=== PATIENT | female | born 1940 | race Caucasian/White ===

== ENCOUNTER 2016-12-22 09:02 | Inpatient (IN) | payer OTHER ==
[2016-12-22 09:02] VITALS: BMI 26.5
--- NOTE | 2016-12-22 09:35 | ED PDOC ---
HPI: Chest Pain Time Seen by Provider: 12/22/16 09:22 Chief Complaint (Nursing): Chest Pain Additional Complaint(s): Patient is a 76 y/o F with HTN and DM, presenting with chest pain. She reports that she woke up this morning with L sided pleuritic chest pain. She reports a hx of GERD and is also complaining of some burning in her epigastric area. Reports non-productive cough and some shortness of breath. Denies prior cardiac workup. PMD: Dr. Clemente Past Medical History Vital Signs: Last Vital Signs Temp 97 F L 12/22/16 09:22 Pulse 71 12/22/16 09:22 Resp 18 12/22/16 09:22 BP 182/84 H 12/22/16 09:22 Pulse Ox 99 12/22/16 12:50 - Medical History PMH: Dementia, Diabetes, Gastritis, HTN - Surgical History Surgical History: Appendectomy, Carotid Endarterectomy - Family History Family History: States: Unknown Family Hx - Home Medications Home Medications: Ambulatory Orders Medication Instructions Recorded Donepezil [Aricept] 5 mg PO DAILY 01/19/16 Losartan [Cozaar] 50 mg PO DAILY 01/19/16 Pantoprazole Sodium [Protonix] 40 mg PO DAILY 01/19/16 SITagliptin [Januvia] 100 mg PO DAILY 01/19/16 Cyclobenzaprine [Cyclobenzaprine 10 mg PO TID #9 tab 03/11/16 HCl] Methylprednisolone [Medrol Dose 4 mg PO DAILY #21 tab 03/11/16 Pack (21 tabs)] - Allergies Allergies/Adverse Reactions: Allergies Allergy/AdvReac Type Severity Reaction Status Date / Time No Known Allergies Allergy Verified 12/22/16 09:22 MAGY Risk Score for UA/NSTEMI - MAGY Risk Score Age > 64: YES 3 or more CAD Risk Factors: YES Aspirin use in past 7 days: YES MAGY Score: 3 Risk %: 13% Wells Criteria for PE - Wells Criteria for Pulmonary Embolism Clinical Signs and Symptoms of DVT: No P.E is #1 Diagnosis, or Equally Likely: No Heart Rate >100: No Immobilization at least 3 days;Surgery previous 4 weeks: No Previous, objectively diagnosed PE or DVT: No Hemoptysis: No Malignancy w/treatment within 6 months, or palliative: No Total Score: 0 Review of Systems Constitutional: Negative for: Fever, Chills Eyes: Negative for: Pain ENT: Negative for: Ear Pain Cardiovascular: Positive for: Chest Pain. Negative for: Palpitations, Orthopnea , Paroxysmal Noc. Dyspnea, Edema, Light Headedness Respiratory: Positive for: Cough, Shortness of Breath, Pleuritic Pain. Negative for: Hemoptysis, SOB with Exertion, Sputum, Wheezing Gastrointestinal: Negative for: Nausea, Vomiting, Abdominal Pain, Diarrhea, Constipation Genitourinary Female: Negative for: Dysuria Musculoskeletal: Negative for: Neck Pain Skin: Negative for: Rash Psych: Negative for: Anxiety Physical Exam - Reviewed Nursing Documentation Reviewed: Yes Vital Signs Reviewed: Yes - Physical Exam Appears: Positive for: Well, Non-toxic Head Exam: Positive for: ATRAUMATIC, NORMAL INSPECTION, NORMOCEPHALIC Skin: Positive for: Normal Color, Warm, DRY Neck: Positive for: Normal, Painless ROM Cardiovascular/Chest: Positive for: Regular Rate, Rhythm Respiratory: Positive for: Normal Breath Sounds. Negative for: Rales, Rhonchi, Stridor Gastrointestinal/Abdominal: Positive for: Soft. Negative for: Tenderness, Mass , Distended Back: Positive for: Normal Inspection Extremity: Positive for: Normal ROM. Negative for: Pedal Edema - Laboratory Results Result Diagrams: 12/22/16 09:45 12/22/16 09:45 - ECG O2 Sat by Pulse Oximetry: 99 Medical Decision Making Medical Decision Making: EKG shows NSR at 76bpm with normal intervals and no ST changes. Cxray negative. CTA negative for PE. Trop x 1 negative. Spoke to Medicine process control tech, Dr. Jackie Madrigal and will transfer to tele observation for chest pain due to risk factors and no prior cardiac workup. Disposition - Clinical Impression Clinical Impression: Chest pain - Disposition Disposition Time: 09:45 Condition: FAIR
[2016-12-22] MEDS ORDERED: Aspirin 325 mg EC Tablets PO ONE (09:52)
[2016-12-22 09:56] LABS: BASO # 0.1 K/uL (0.0-0.2); BASO % 1.4 % (0.0-2.0); EOS # 0.1 K/uL (0.0-0.7); EOS % 1.5 % (0.0-4.0); HEMATOCRIT 41.9 % (34.0-47.0); LYMPH # 1.8 K/uL (1.0-4.3); LYMPH % 37.4 % (20.0-40.0); MEAN CELL VOLUME 89.6 fl (81.0-99.0); MEAN CORPUSCULAR HGB CONC 33.4 g/dL (33.0-37.0); MONO # 0.5 K/uL (0.0-0.8); MONO % 10.1 % (0.0-10.0); NEUT # 2.4 K/uL (1.8-7.0); NEUT % 49.6 % (50.0-75.0); NRBC % 0.2 % (0.0-0.0); RED CELL DISTRIBUTION WIDTH 13.7 % (11.5-14.5); WHITE BLOOD COUNT 4.9 K/uL (4.8-10.8)
[2016-12-22 10:08] LABS: ALB/GLOB RATIO 1.1 (1.0-2.1); ALKALINE PHOSPHATASE 143 U/L (38-126); ALT/SGPT 114 U/L (9-52); AST/SGOT 106 U/L (14-36); BILIRUBIN,TOTAL 1.1 mg/dl (0.2-1.3); BLOOD UREA NITROGEN 15 mg/dl (7-17); CALCIUM 9.6 mg/dL (8.4-10.2); CARBON DIOXIDE 26 mmol/L (22-30); CHLORIDE 104 mmol/L (98-107); GFR AFRICAN-AMERICAN > 60; GLUCOSE,RANDOM 207 mg/dL (65-105); POTASSIUM 4.1 MMOL/L (3.6-5.0); SODIUM 140 mmol/l (132-148); TOTAL PROTEIN 7.3 G/DL (6.3-8.2)
[2016-12-22 10:13] LABS: PARTIAL THROMBOPLASTIN TIME 31.6 Seconds (25.6-37.1)
--- NOTE | 2016-12-22 11:24 | RAD ---
HISTORY: chest pain COMPARISON: Comparison made with chest radiograph 03/31/2010 FINDINGS: LUNGS: Mild bibasilar atelectasis left greater than right slight elevation right hemidiaphragm. PLEURA: No significant pleural effusion identified, no pneumothorax apparent. CARDIOVASCULAR: Normal. OSSEOUS STRUCTURES: There is a tiny metallic fixation ankle overlying the right humeral head VISUALIZED UPPER ABDOMEN: Normal. OTHER FINDINGS: None. IMPRESSION: Mild bibasilar atelectasis. Slight elevation right hemidiaphragm.
[2016-12-22] MEDS ORDERED: Iodixanol 320 MG/ML 100 ML BOTTLE IV ONE (11:36)
[2016-12-22] MEDS ORDERED: Sodium Chloride 0.9% 50 ML IV ONE (11:37)
--- NOTE | 2016-12-22 12:26 | CT ---
CTA chest PE protocol Indication: Pleuritic chest pain Technique: Contiguous axial images were obtained through the chest with intravenous contrast enhancement. Sagittal and coronal reconstructions were generated and reviewed. This CT exam was performed using 1 or more of the falling dose reduction techniques: Automated exposure control, adjustment of the MAA and/or kV according to patient size, and/or use of iterative reconstruction technique. IV Contrast: 95 mL Visipaque 320 Radiation dose (DLP): 382.79 MGy-cm. Comparison: Chest x-ray performed 12/22/16 Findings: Visualized portions of the inferior thyroid gland appear unremarkable. The mediastinal and hilar vascular structures appear within normal limits. The heart appears within normal limits of size. There is suboptimal opacification of the pulmonary arteries limiting evaluation for pulmonary embolus. Given this limitation, there are no visible intraluminal filling defects within the central pulmonary arteries to suggest central pulmonary embolism. No focal consolidation. No pleural effusion. No pneumothorax. Punctate right sub cm prevascular lymph nodes, nonspecific. Upper lobe calcified granuloma. No suspicious pulmonary nodules measuring greater than 5 mm. Limited visualized portions of the upper abdomen appear grossly unremarkable. Osseous demineralization. Degenerative changes. Impression: There is suboptimal opacification of the pulmonary arteries limiting evaluation for pulmonary embolus. Given this limitation, there are no visible intraluminal filling defects within the central pulmonary arteries to suggest central pulmonary embolism.
[2016-12-22] MEDS ORDERED: Ergocalciferol 50,000 Intl Units Cap PO SCH (15:45)
[2016-12-22] MEDS: Enoxaparin 40 mg Syringe SC SCH (16:45)
[2016-12-22] MEDS: Multivitamin With Minerals Tab PO SCH (16:46)
[2016-12-22] MEDS: Calcium-Vit D 500 mg-200 Units Tab UD PO SCH (16:46)
[2016-12-22] MEDS: Pantoprazole 40 mg EC Tab PO SCH (17:01)
--- NOTE | 2016-12-22 18:20 | CP.PCM.CON ---
History of Present Illness - History of Present Illness History of Present Illness: Consultation for evaluation of chest pain HPI: 76-year-old female with past medical history significant for hypertension diabetes mellitus presented with an episode of chest pain according to the patient's family at the bedside who did the translation for her she had an episode of left-sided patient described as pleuritic in nature worse with deep inspiration. She has known history of gastroesophageal reflux disease and complaining of some epigastric burning. Has a nonproductive ongoing for a month prior to presentation associated mild shortness of breath. Patient has been followed by Dr. Dixon in outpatient. I spoke to Dr. Zack Cristobal [facility] [place] to obtain the records of her prior workup. She never had any cardiac workup in the past and. Review of Systems - Review of Systems All systems: reviewed and no additional remarkable complaints except - Constitutional Constitutional: As Per HPI, Fatigue, Malaise - EENT Eyes: As Per HPI Ears: As Per HPI Nose/Mouth/Throat: As Per HPI - Breasts Breasts: As Per HPI - Cardiovascular Cardiovascular: As Per HPI, Chest Pain - Respiratory Respiratory: As Per HPI, Cough - Gastrointestinal Gastrointestinal: As Per HPI - Genitourinary Genitourinary: As Per HPI - Reproductive: Female Reproductive:Female: As Per HPI - Musculoskeletal Musculoskeletal: As Per HPI - Integumentary Integumentary: As Per HPI - Neurological Neurological: As Per HPI - Psychiatric Psychiatric: As Per HPI - Endocrine Endocrine: As Per HPI - Hematologic/Lymphatic Hematologic: As Per HPI Past Patient History - Past Medical History & Family History Pertinent Family History: +ve for HTN - Past Social History Smoking Status: Never Smoked - CARDIAC Hx Cardiac Disorders: (HTN, high cholesterol) - PULMONARY Hx Respiratory Disorders: No - NEUROLOGICAL Hx Neurological Disorder: Yes (Dementia) - ENDOCRINE/METABOLIC Hx Endocrine Disorders: Yes (DM) - MUSCULOSKELETAL/RHEUMATOLOGICAL Hx Falls: No - GASTROINTESTINAL Hx Gastritis: Yes - GENITOURINARY/GYNECOLOGICAL Hx Genitourinary Disorders: No - PSYCHIATRIC Hx Psychophysiologic Disorder: No Hx Substance Use: No - SURGICAL HISTORY Hx Appendectomy: Yes Hx Carotid Endarterectomy: Yes - ANESTHESIA Hx Anesthesia: Yes Hx Anesthesia Reactions: No Meds Allergies/Adverse Reactions: Allergies Allergy/AdvReac Type Severity Reaction Status Date / Time No Known Allergies Allergy Verified 12/22/16 09:22 - Medications Medications: Current Medications Calcium/Vitamin D (Oyster Shell Calcium/Vitamin D 500 Mg-200 Iu) 1 tab PO BID [facility] Last Admin: 12/22/16 16:46 Dose: 1 tab Donepezil HCl (Aricept) 5 mg PO DAILY [facility] Last Admin: 12/22/16 16:55 Dose: 5 mg Enoxaparin Sodium (Lovenox) 40 mg SC DAILY [facility] PRN Reason: Protocol Last Admin: 12/22/16 16:45 Dose: 40 mg Ergocalciferol (Drisdol 50,000 Intl Units Cap) 1 cap PO FR [facility] Last Admin: 12/22/16 16:47 Dose: 1 cap Losartan Potassium (Cozaar) 50 mg PO DAILY [facility] Last Admin: 12/22/16 16:47 Dose: 50 mg Meclizine HCl (Antivert) 25 mg PO TID PRN PRN Reason: Dizziness Multivitamins/Minerals (Therapeutic-M Tab) 1 tab PO DAILY [facility] Last Admin: 12/22/16 16:46 Dose: 1 tab Oisgx-8-[id number] Ethyl Esters (Lovaza) 1 gm PO DAILY [facility] Pantoprazole Sodium (Protonix Ec Tab) 40 mg PO DAILY [facility] Last Admin: 12/22/16 17:01 Dose: 40 mg Sitagliptin Phosphate (Januvia) 100 mg PO DAILY [facility] Last Admin: 12/22/16 16:47 Dose: 100 mg Vitamin E (Vitamin E 400 Units Cap) 400 intlu PO DAILY [facility] Last Admin: 12/22/16 16:47 Dose: 400 intlu Physical Exam - Constitutional Appears: Well - Head Exam Head Exam: ATRAUMATIC, NORMAL INSPECTION, NORMOCEPHALIC - Eye Exam Eye Exam: EOMI, Normal appearance, PERRL Pupil Exam: NORMAL ACCOMODATION, PERRL - ENT Exam ENT Exam: Mucous Membranes Moist, Normal Exam - Neck Exam Neck exam: Positive for: Normal Inspection - Respiratory Exam Respiratory Exam: Clear to Auscultation Bilateral, NORMAL BREATHING PATTERN - Cardiovascular Exam Cardiovascular Exam: REGULAR RHYTHM, RRR, +S1, +S2, Systolic Murmur - GI/Abdominal Exam GI & Abdominal Exam: Normal Bowel Sounds, Soft. absent: Tenderness - Exam Bimanual exam: NORMAL BIMANUAL EXAM - Extremities Exam Extremities exam: Positive for: normal inspection - Back Exam Back exam: NORMAL INSPECTION - Neurological Exam Neurological exam: Alert, CN II-XII Intact, Oriented x3, Reflexes Normal - Psychiatric Exam Psychiatric exam: Normal Affect, Normal Mood - Skin Skin Exam: Dry, Intact, Normal Color, Warm Results - Vital Signs Recent Vital Signs: Last Vital Signs Temp 98.1 F 12/22/16 17:00 Pulse 65 12/22/16 17:00 Resp 20 12/22/16 17:00 BP 172/84 H 12/22/16 17:00 Pulse Ox 97 12/22/16 17:00 - Labs Result Diagrams: 12/22/16 09:45 12/22/16 09:45 Labs: Laboratory Results - last 24 hr 12/22/16 12/22/16 12/22/16 14:42 16:26 16:31 POC Glucose (mg/dL) 176 H 227 H Troponin I < 0.0120 Assessment & Plan (1) Chest pain Assessment and Plan: both typical and atypical features pretest probability for CAD is high will SHAY check echo in am keep her on asa, bb, statins and nitrates plan for stress test depending on above results Status: Acute (2) HTN (hypertension) Assessment and Plan: cont home BP meds for now Status: Acute (3) Dyslipidemia Assessment and Plan: check FLP in am Status: Acute
[2016-12-22] MEDS ORDERED: Glucagon Recombinant 1 mg Inj IM PRN (19:34)
[2016-12-22] MEDS ORDERED: Dextrose 50% SYRINGE Inj (50 ml) IV PRN (19:34)
[2016-12-22] MEDS: Insulin Regular 100 units/ml SC SCH (22:37)
[2016-12-23 08:17] LABS: ALKALINE PHOSPHATASE 102 U/L (38-126); ALT/SGPT 109 U/L (9-52); AST/SGOT 99 U/L (14-36); BILIRUBIN,TOTAL 1.5 mg/dl (0.2-1.3); BLOOD UREA NITROGEN 15 mg/dl (7-17); CALCIUM 9.3 mg/dL (8.4-10.2); CARBON DIOXIDE 28 mmol/L (22-30); CHLORIDE 105 mmol/L (98-107); GFR AFRICAN-AMERICAN > 60; GLUCOSE,RANDOM 132 mg/dL (65-105); POTASSIUM 3.9 MMOL/L (3.6-5.0); SODIUM 138 mmol/l (132-148); TOTAL PROTEIN 7.3 G/DL (6.3-8.2)
[2016-12-23 08:30] LABS: CHOLESTEROL 206 mg/dL (0-199)
[2016-12-23] MEDS ORDERED: Patient's Own Med (Biotin [Biotin] 1 CAP) PO SCH (09:00)
[2016-12-23 09:09] LABS: THYROID STIMULATING HORMONE 2.38 mIU/ML (0.46-4.68)
[2016-12-23] MEDS: Insulin Regular 100 units/ml SC SCH ×4 (09:34→22:14)
[2016-12-23] MEDS: Omega-3-Acid Ethyl Esters 1 GM Cap PO SCH (09:35)
[2016-12-23] MEDS: Calcium-Vit D 500 mg-200 Units Tab UD PO SCH ×2 (09:35→17:19)
[2016-12-23] MEDS: Enoxaparin 40 mg Syringe SC SCH (09:35)
[2016-12-23] MEDS: Pantoprazole 40 mg EC Tab PO SCH (09:35)
[2016-12-23] MEDS: Multivitamin With Minerals Tab PO SCH (09:36)
--- NOTE | 2016-12-23 10:03 | CARD ---
APPROVED REPORT EXAM: Two-dimensional and M-mode echocardiogram with Doppler and color Doppler. Other Information Quality : GoodRhythm : NSR INDICATION Chest Pain 2D DIMENSIONS IVSd1.31 (0.7-1.1cm)LVDd3.83 (3.9-5.9cm) LVOT Diameter1.83 (1.8-2.4cm)PWd1.11 (0.7-1.1cm) IVSs1.25 (0.8-1.2cm)LVDs2.94 (2.5-4.0cm) FS (%) 23.3 %PWs1.20 (0.8-1.2cm) M-Mode DIMENSIONS Left Atrium (MM)3.91 (2.5-4.0cm)IVSd1.44 (0.7-1.1cm) Aortic Root2.59 (2.2-3.7cm)LVDd4.91 (4.0-5.6cm) Aortic Cusp Exc.2.00 (1.5-2.0cm)PWd1.24 (0.7-1.1cm) IVSs1.47 cmFS (%) 21 % LVDs3.88 (2.0-3.8cm)PWs1.12 cm Mitral Valve MV E Aibloxva89.4cm/sMV DECEL [id number] A Bjciyjbl77.5cm/s MV EPZ36yaH/A ratio0.8MVA (PHT)3.70cm2 TDI Lateral E' Peak V5.62cm/sMedial E' Peak V4.16cm/sE/Lateral E'10.4 E/Medial E'14.0 Pulmonary Valve PV Peak Dsclpqqs915.6cm/s LEFT VENTRICLE The left ventricle is normal size. There is normal left ventricular wall thickness. Left ventricle systolic function is normal. The Ejection Fraction is 65-70%. There is normal LV segmental wall motion. Transmitral Doppler flow pattern is Grade I-abnormal relaxation pattern. RIGHT VENTRICLE The right ventricle is normal size. There is normal right ventricular wall thickness. The right ventricular systolic function is normal. ATRIA The left atrium size is normal. The right atrium size is normal. AORTIC VALVE The aortic valve is normal in structure and function. There is trace aortic regurgitation. There is no aortic valvular stenosis. MITRAL VALVE The mitral valve is normal in structure. There is no evidence of mitral valve prolapse. There is no mitral valve stenosis. Mitral regurgitation is mild. TRICUSPID VALVE The tricuspid valve is normal in structure and function. There is no tricuspid valve regurgitation noted. PULMONIC VALVE The pulmonary valve is normal in structure and function. There is no pulmonic valvular regurgitation. GREAT VESSELS The aortic root is normal in size. The IVC is normal in size and collapses >50% with inspiration. PERICARDIAL EFFUSION The pericardium appears normal. <Conclusion> The left ventricle is normal size. There is normal left ventricular wall thickness. There is normal LV segmental wall motion. Left ventricle systolic function is normal. The Ejection Fraction is 65-70%. Transmitral Doppler flow pattern is Grade I-abnormal relaxation pattern.
--- NOTE | 2016-12-23 12:07 | CARD ---
APPROVED REPORT EKG Measurement Heart [id number] IL [id number] <Conclusion> Normal sinus rhythm Normal ECG
--- NOTE | 2016-12-23 19:13 | US ---
HISTORY: elevated LFT COMPARISON: None. TECHNIQUE: Sonographic evaluation of the abdomen. FINDINGS: LIVER: Measures approximately 12 cm in CC dimension. Liver demonstrates smooth contour though increased echotexture likely due to fatty infiltration however other infiltrative hepatocellular disease process not excluded. No obvious hepatic mass or collection. No evidence of significant ascites Cm. Normal echogenicity of the liver parenchyma. No mass. No intrahepatic bile duct dilatation. GALLBLADDER: Unremarkable. No gallstones. No sonographic Koch sign COMMON BILE DUCT: Measures 3.4 mm. No stones. No dilatation. PANCREAS: Unremarkable as visualized. No mass. No ductal dilatation. RIGHT KIDNEY: Measures approximately 10.2 x 4.6 x 4.0cm. Normal echogenicity. No calculus, mass, or hydronephrosis. LEFT KIDNEY: Measures 10.1 x 4.3 x 5.0Cm. Normal echogenicity. No calculus, mass, or hydronephrosis. SPLEEN: Normal in size and contour. No mass. AORTA: No aneurysmal dilatation. IVC: Unremarkable. OTHER FINDINGS: None. IMPRESSION: Mild fatty infiltration as above.
--- NOTE | 2016-12-23 23:53 | CP.PCM.PN ---
Subjective - Date & Time of Evaluation Date of Evaluation: 12/23/16 Time of Evaluation: 16:00 - Subjective Subjective: c/o left shoulder and chest discomfort BP high Echo normal ACS ruled out Objective - Vital Signs/Intake and Output Vital Signs (last 24 hours): Temp Pulse Resp BP Pulse Ox 98.5 F 70 20 139/69 97 12/23/16 21:36 12/23/16 21:36 12/23/16 21:36 12/23/16 21:36 12/23/16 21:36 - Medications Medications: Current Medications Calcium/Vitamin D (Oyster Shell Calcium/Vitamin D 500 Mg-200 Iu) 1 tab PO BID [facility] Last Admin: 12/23/16 17:19 Dose: 1 tab Dextrose (Dextrose 50% Inj) 0 ml IV STAT PRN; Protocol PRN Reason: Hyglycemia Protocol Dextrose (Glutose 15) 0 gm PO ONCE PRN; Protocol PRN Reason: Hypoglycemia Protocol Donepezil HCl (Aricept) 5 mg PO DAILY [facility] Last Admin: 12/23/16 09:35 Dose: 5 mg Enoxaparin Sodium (Lovenox) 40 mg SC DAILY [facility] PRN Reason: Protocol Last Admin: 12/23/16 09:35 Dose: 40 mg Ergocalciferol (Drisdol 50,000 Intl Units Cap) 1 cap PO FR [facility] Last Admin: 12/22/16 16:47 Dose: 1 cap Glucagon (Glucagen Diagnostic Kit) 0 mg IM STAT PRN; Protocol PRN Reason: Hypoglycemia Protocol Insulin Human Regular (Humulin R) 0 units SC ACHS [facility] PRN Reason: Protocol Last Admin: 12/23/16 22:14 Dose: Not Given Losartan Potassium (Cozaar) 50 mg PO DAILY [facility] Last Admin: 12/23/16 09:36 Dose: 50 mg Meclizine HCl (Antivert) 25 mg PO TID PRN PRN Reason: Dizziness Multivitamins/Minerals (Therapeutic-M Tab) 1 tab PO DAILY [facility] Last Admin: 12/23/16 09:36 Dose: 1 tab Esrtf-0-Nlti Ethyl Esters (Lovaza) 1 gm PO DAILY [facility] Last Admin: 12/23/16 09:35 Dose: 1 gm Pantoprazole Sodium (Protonix Ec Tab) 40 mg PO DAILY [facility] Last Admin: 12/23/16 09:35 Dose: 40 mg Sitagliptin Phosphate (Januvia) 100 mg PO DAILY [facility] Last Admin: 12/23/16 09:36 Dose: 100 mg Vitamin E (Vitamin E 400 Units Cap) 400 intlu PO DAILY [facility] Last Admin: 12/23/16 09:35 Dose: 400 intlu - Labs Labs: 12/23/16 06:00 PT 12.5 Seconds (9.8-13.1) 12/22/16 09:45 INR 1.2 (0.9-1.2) 12/22/16 09:45 APTT 31.6 Seconds (25.6-37.1) 12/22/16 09:45 - Constitutional Appears: Well - Head Exam Head Exam: ATRAUMATIC, NORMAL INSPECTION, NORMOCEPHALIC - Eye Exam Eye Exam: EOMI, Normal appearance, PERRL Pupil Exam: NORMAL ACCOMODATION, PERRL - ENT Exam ENT Exam: Mucous Membranes Moist, Normal Exam - Neck Exam Neck Exam: Full ROM, Normal Inspection. absent: Lymphadenopathy - Respiratory Exam Respiratory Exam: Clear to Ausculation Bilateral, NORMAL BREATHING PATTERN - Cardiovascular Exam Cardiovascular Exam: REGULAR RHYTHM, +S1, +S2, Murmur - GI/Abdominal Exam GI & Abdominal Exam: Soft, Normal Bowel Sounds. absent: Tenderness - Exam Bimanual exam: NORMAL BIMANUAL EXAM - Extremities Exam Extremities Exam: Full ROM, Normal Capillary Refill, Normal Inspection. absent : Joint Swelling, Pedal Edema - Back Exam Back Exam: NORMAL INSPECTION - Neurological Exam Neurological Exam: Alert, Awake, CN II-XII Intact, Oriented x3 - Psychiatric Exam Psychiatric exam: Normal Affect, Normal Mood - Skin Skin Exam: Dry, Intact, Normal Color, Warm Assessment and Plan (1) Chest pain Assessment & Plan: ACS ruled out echo normal plan for stress test on Sunday Status: Acute (2) HTN (hypertension) Assessment & Plan: BP fluctuant on losartan consider adding coreg 3.125mg po bid Status: Acute (3) Dyslipidemia Assessment & Plan: statins Status: Acute
[2016-12-24] MEDS: Pantoprazole 40 mg EC Tab PO SCH (09:28)
[2016-12-24] MEDS: Enoxaparin 40 mg Syringe SC SCH (09:28)
[2016-12-24] MEDS: Omega-3-Acid Ethyl Esters 1 GM Cap PO SCH (09:28)
[2016-12-24] MEDS: Calcium-Vit D 500 mg-200 Units Tab UD PO SCH ×2 (09:28→17:51)
[2016-12-24] MEDS: Multivitamin With Minerals Tab PO SCH (09:29)
--- NOTE | 2016-12-24 12:11 | PN ---
DATE: 12/24/2016 SUBJECTIVE: The patient was seen and examined. Interim events noted. Consults noted and appreciated. The patient remains in transitional care unit, on telemetry monitoring. The patient is okay. Denies any chest pain or shortness of breath at this time. PHYSICAL EXAMINATION GENERAL: The patient is in no acute distress. VITAL SIGNS: Stable. HEART: S1 and S2 normal and regular. LUNGS: Good bilateral air exchange. ABDOMEN: Soft and nontender. EXTREMITIES: No edema. No calf swelling. No tenderness. No acute ischemia. CENTRAL NERVOUS SYSTEM: Essentially unchanged. DIAGNOSTIC DATA: Available diagnostic data reviewed, telemetry monitoring does not show significant arrhythmia. ASSESSMENT: Overall, the patient's general medical is stable and improving. PLAN: As ordered. Grayson Madrigal MD
[2016-12-24] MEDS: Insulin Regular 100 units/ml SC SCH ×3 (13:00→22:09)
--- NOTE | 2016-12-24 15:00 | HP ---
CHIEF COMPLAINT: Chest pain. HISTORY OF PRESENT ILLNESS: This is a 76-year-old female with known history of diabetes, hypertension who was having chest pain, which started while the patient woke up. Pain was on the left side of the chest that was not associated with any other shortness of breath, respiration, loss of consciousness or dizziness. The patient's pain persisted, so the patient was brought to the emergency room and was admitted for further management. REVIEW OF SYSTEMS: Positive for chest pain, epigastric pain. Review of systems otherwise is negative for headache, dizziness, syncope, loss of consciousness, shortness of breath, nausea, vomiting, diarrhea, constipation, any new joint or extremity pain. Review of systems of all other organ system is unremarkable. PAST MEDICAL HISTORY: Significant for hypertension, diabetes, dyspepsia, dementia. PAST SURGICAL HISTORY: Remarkable for carotid endarterectomy, appendectomy in the past. SOCIAL HISTORY: The patient currently is nonsmoker, nondrinker, no substance abuse. MEDICATIONS: The patient is on multiple medication including Aricept, Cozaar, Protonix, Januvia, Flexeril, and prednisone. ALLERGIES: THE PATIENT IS NOT ALLERGIC TO ANY MEDICATIONS. FAMILY HISTORY: Noncontributory. PHYSICAL EXAMINATION: GENERAL: A well-built, well-nourished overweight 76-year-old female in no acute distress. VITAL SIGNS: Temperature 97.9, pulse 68, respiratory 18, blood pressure 177/74, HEENT: Pupils are reactive to light. No JVD. No thyromegaly. No lymphadenopathy. No nystagmus. Normocephalic and atraumatic skull. HEART: S1 and S2 normal and regular. No significant murmur, gallop, or rub is heard. CHEST: Clear bilateral air entry. No rales or rhonchi. ABDOMEN: Soft, nontender. No organomegaly. No bruit. Bowel sounds are plus. EXTREMITIES: No edema. No calf swelling. No tenderness. No acute ischemia. EXCELSIOR MACHINE TENDER: The patient is alert, awake. There is no sign of any acute gross focal motor, sensory, or neurological deficit. LABORATORY DATA: Diagnostic data available. Diagnostic data reviewed, telemetry monitoring does not reveal significant anemias. WBC 4.9, hemoglobin 14, hematocrit 41.9, platelets 153. PT 12.5, INR 1.2, PTT 31.6. D-dimer was 359. Sodium 140, potassium 4.1, chloride 104, bicarbonate 26, BUN 15, creatinine 0.6. Accu-Cheks are 176, 227, 103, 207. AST is 106 and ALT is 114, otherwise SMA-12 was unremarkable. Chest x-ray was normal. EKG did not show any ST-T changes. Abdominal ultrasound showed fatty liver. CAT scan of the chest did not reveal any acute thrombus. IMPRESSION: Chest pain, epigastric pain, rule out acute coronary syndrome, coronary artery disease, type 2 diabetes with hyperglycemia, hypertension, dementia. PLAN: As ordered. Case of and plan discussed with the patient.. Grayson Madrigal MD
[2016-12-25 07:03] LABS: HEMATOCRIT 42.9 % (34.0-47.0); MEAN CELL VOLUME 89.3 fl (81.0-99.0); MEAN CORPUSCULAR HGB CONC 33.7 g/dL (33.0-37.0); RED CELL DISTRIBUTION WIDTH 13.4 % (11.5-14.5); WHITE BLOOD COUNT 7.7 K/uL (4.8-10.8)
[2016-12-25 07:25] LABS: ALKALINE PHOSPHATASE 84 U/L (38-126); ALT/SGPT 90 U/L (9-52); AST/SGOT 71 U/L (14-36); BILIRUBIN,TOTAL 1.4 mg/dl (0.2-1.3); BLOOD UREA NITROGEN 24 mg/dl (7-17); CALCIUM 9.8 mg/dL (8.4-10.2); CARBON DIOXIDE 26 mmol/L (22-30); CHLORIDE 105 mmol/L (98-107); GFR AFRICAN-AMERICAN > 60; GLUCOSE,RANDOM 138 mg/dL (65-105); POTASSIUM 4.2 MMOL/L (3.6-5.0); SODIUM 138 mmol/l (132-148); TOTAL PROTEIN 7.2 G/DL (6.3-8.2)
--- NOTE | 2016-12-25 08:48 | CARD ---
APPROVED REPORT EKG Measurement Heart [id number] ND 170P48 [id number] <Conclusion> Normal sinus rhythm Normal ECG
[2016-12-25] MEDS: Omega-3-Acid Ethyl Esters 1 GM Cap PO SCH (09:37)
[2016-12-25] MEDS: Calcium-Vit D 500 mg-200 Units Tab UD PO SCH ×2 (09:38→17:21)
[2016-12-25] MEDS: Multivitamin With Minerals Tab PO SCH (09:38)
[2016-12-25] MEDS: Pantoprazole 40 mg EC Tab PO SCH (09:38)
[2016-12-25] MEDS: Enoxaparin 40 mg Syringe SC SCH (09:39)
[2016-12-25] MEDS: Insulin Regular 100 units/ml SC SCH ×4 (09:39→21:43)
[2016-12-25] MEDS ORDERED: Aminophylline 25 mg/ml Inj ONE (11:10)
--- NOTE | 2016-12-25 13:43 | PN ---
DATE: 12/25/2016 SUBJECTIVE: The patient was seen and examined. Interim events noted. Consults noted and appreciated. The patient remains in Progressive Care Unit on telemetry monitoring. Denies any specific medical complaint. No chest pain. No shortness of breath. No abdominal pain. PHYSICAL EXAMINATION: GENERAL: The patient is in no acute distress. VITAL SIGNS: Stable. HEART: S1 and S2 normal, regular. LUNGS: Good bilateral air entry. ABDOMEN: Soft and nontender. EXTREMITIES: No edema. No calf swelling or tenderness. No acute ischemia. CENTRAL NERVOUS SYSTEM: Essentially unchanged. DIAGNOSTIC DATA: Available diagnostic data reviewed. Telemetry monitoring does not show significant arrhythmia. ASSESSMENT: Overall, the patient's general medical condition is stable. PLAN: As ordered. Grayson Madrigal MD
[2016-12-26] MEDS: Insulin Regular 100 units/ml SC SCH (06:54)
[2016-12-26 08:08] VITALS: RESP 18; O2SAT 97
[2016-12-26] MEDS: Pantoprazole 40 mg EC Tab PO SCH (09:49)
[2016-12-26] MEDS: Multivitamin With Minerals Tab PO SCH (09:49)
[2016-12-26] MEDS: Omega-3-Acid Ethyl Esters 1 GM Cap PO SCH (09:49)
[2016-12-26] MEDS: Enoxaparin 40 mg Syringe SC SCH (09:49)
[2016-12-26] MEDS: Calcium-Vit D 500 mg-200 Units Tab UD PO SCH (09:50)
--- NOTE | 2016-12-26 09:59 | CP.PCM.PN ---
Subjective - Date & Time of Evaluation Date of Evaluation: 12/26/16 Time of Evaluation: 09:58 - Subjective Subjective: s/p stress test awating resting imaging reviewed imaged with - no evidence of ischemia Objective - Vital Signs/Intake and Output Vital Signs (last 24 hours): Temp Pulse Resp BP Pulse Ox 98.1 F 60 18 104/67 97 12/26/16 08:08 12/26/16 09:50 12/26/16 08:08 12/26/16 09:50 12/26/16 08:08 - Medications Medications: Current Medications Calcium/Vitamin D (Oyster Shell Calcium/Vitamin D 500 Mg-200 Iu) 1 tab PO BID [facility] Last Admin: 12/26/16 09:50 Dose: 1 tab Carvedilol (Coreg) 6.25 mg PO Q12 [facility] Last Admin: 12/26/16 09:49 Dose: 6.25 mg Dextrose (Dextrose 50% Inj) 0 ml IV STAT PRN; Protocol PRN Reason: Hyglycemia Protocol Dextrose (Glutose 15) 0 gm PO ONCE PRN; Protocol PRN Reason: Hypoglycemia Protocol Donepezil HCl (Aricept) 5 mg PO DAILY [facility] Last Admin: 12/26/16 09:49 Dose: 5 mg Enoxaparin Sodium (Lovenox) 40 mg SC DAILY [facility] PRN Reason: Protocol Last Admin: 12/26/16 09:49 Dose: 40 mg Ergocalciferol (Drisdol 50,000 Intl Units Cap) 1 cap PO FR [facility] Last Admin: 12/22/16 16:47 Dose: 1 cap Glucagon (Glucagen Diagnostic Kit) 0 mg IM STAT PRN; Protocol PRN Reason: Hypoglycemia Protocol Insulin Human Regular (Humulin R) 0 units SC ACHS [facility] PRN Reason: Protocol Last Admin: 12/26/16 06:54 Dose: Not Given Losartan Potassium (Cozaar) 50 mg PO DAILY [facility] Last Admin: 12/26/16 09:50 Dose: 50 mg Meclizine HCl (Antivert) 25 mg PO TID PRN PRN Reason: Dizziness Multivitamins/Minerals (Therapeutic-M Tab) 1 tab PO DAILY [facility] Last Admin: 12/26/16 09:49 Dose: 1 tab [id number] Ethyl Esters (Lovaza) 1 gm PO DAILY [facility] Last Admin: 12/26/16 09:49 Dose: 1 gm Pantoprazole Sodium (Protonix Ec Tab) 40 mg PO DAILY [facility] Last Admin: 12/26/16 09:49 Dose: 40 mg Sitagliptin Phosphate (Januvia) 100 mg PO DAILY [facility] Last Admin: 12/26/16 09:49 Dose: 100 mg Vitamin E (Vitamin E 400 Units Cap) 400 intlu PO DAILY [facility] Last Admin: 12/26/16 09:50 Dose: 400 intlu - Labs Labs: 12/25/16 05:30 12/25/16 05:30 PT 12.5 Seconds (9.8-13.1) 12/22/16 09:45 INR 1.2 (0.9-1.2) 12/22/16 09:45 APTT 31.6 Seconds (25.6-37.1) 12/22/16 09:45 - Constitutional Appears: Well - Head Exam Head Exam: ATRAUMATIC, NORMAL INSPECTION, NORMOCEPHALIC - Eye Exam Eye Exam: EOMI, Normal appearance, PERRL Pupil Exam: NORMAL ACCOMODATION, PERRL - ENT Exam ENT Exam: Mucous Membranes Moist, Normal Exam - Neck Exam Neck Exam: Full ROM, Normal Inspection. absent: Lymphadenopathy - Respiratory Exam Respiratory Exam: Clear to Ausculation Bilateral, NORMAL BREATHING PATTERN - Cardiovascular Exam Cardiovascular Exam: REGULAR RHYTHM, RRR, +S1, +S2, Murmur - GI/Abdominal Exam GI & Abdominal Exam: Soft, Normal Bowel Sounds. absent: Tenderness - Extremities Exam Extremities Exam: Full ROM, Normal Capillary Refill, Normal Inspection. absent : Joint Swelling, Pedal Edema - Back Exam Back Exam: NORMAL INSPECTION - Neurological Exam Neurological Exam: Alert, Awake, CN II-XII Intact, Oriented x3 - Psychiatric Exam Psychiatric exam: Normal Affect, Normal Mood - Skin Skin Exam: Dry, Intact, Normal Color, Warm Assessment and Plan (1) Chest pain Assessment & Plan: stress test -ve for ischemia etiology ? MSK NSAIDS Status: Acute (2) HTN (hypertension) Assessment & Plan: BP improved on coreg cont losartan Status: Chronic (3) Dyslipidemia Assessment & Plan: consider low dose statins Status: Acute
--- NOTE | 2016-12-26 10:20 | CP.PCM.PN ---
<Carol Shetty - Last Filed: 12/26/16 10:17> Subjective - Date & Time of Evaluation Date of Evaluation: 12/26/16 Time of Evaluation: 07:55 - Subjective Subjective: patient seen and examined with attending denies Cp, SOB, N/V, abdominal pain patient reports a h/o GERD Objective - Vital Signs/Intake and Output Vital Signs (last 24 hours): Temp Pulse Resp BP Pulse Ox 98.1 F 60 18 104/67 97 12/26/16 08:08 12/26/16 09:50 12/26/16 08:08 12/26/16 09:50 12/26/16 08:08 - Medications Medications: Current Medications Calcium/Vitamin D (Oyster Shell Calcium/Vitamin D 500 Mg-200 Iu) 1 tab PO BID [facility] Last Admin: 12/26/16 09:50 Dose: 1 tab Carvedilol (Coreg) 6.25 mg PO Q12 [facility] Last Admin: 12/26/16 09:49 Dose: 6.25 mg Dextrose (Dextrose 50% Inj) 0 ml IV STAT PRN; Protocol PRN Reason: Hyglycemia Protocol Dextrose (Glutose 15) 0 gm PO ONCE PRN; Protocol PRN Reason: Hypoglycemia Protocol Donepezil HCl (Aricept) 5 mg PO DAILY [facility] Last Admin: 12/26/16 09:49 Dose: 5 mg Enoxaparin Sodium (Lovenox) 40 mg SC DAILY [facility] PRN Reason: Protocol Last Admin: 12/26/16 09:49 Dose: 40 mg Ergocalciferol (Drisdol 50,000 Intl Units Cap) 1 cap PO FR [facility] Last Admin: 12/22/16 16:47 Dose: 1 cap Glucagon (Glucagen Diagnostic Kit) 0 mg IM STAT PRN; Protocol PRN Reason: Hypoglycemia Protocol Insulin Human Regular (Humulin R) 0 units SC ACHS [facility] PRN Reason: Protocol Last Admin: 12/26/16 06:54 Dose: Not Given Losartan Potassium (Cozaar) 50 mg PO DAILY [facility] Last Admin: 12/26/16 09:50 Dose: 50 mg Meclizine HCl (Antivert) 25 mg PO TID PRN PRN Reason: Dizziness Multivitamins/Minerals (Therapeutic-M Tab) 1 tab PO DAILY [facility] Last Admin: 12/26/16 09:49 Dose: 1 tab Gwzhq-[id number] Ethyl Esters (Lovaza) 1 gm PO DAILY [facility] Last Admin: 12/26/16 09:49 Dose: 1 gm Pantoprazole Sodium (Protonix Ec Tab) 40 mg PO DAILY [facility] Last Admin: 12/26/16 09:49 Dose: 40 mg Sitagliptin Phosphate (Januvia) 100 mg PO DAILY [facility] Last Admin: 12/26/16 09:49 Dose: 100 mg Vitamin E (Vitamin E 400 Units Cap) 400 intlu PO DAILY [facility] Last Admin: 12/26/16 09:50 Dose: 400 intlu - Labs Labs: 12/25/16 05:30 12/25/16 05:30 PT 12.5 Seconds (9.8-13.1) 12/22/16 09:45 INR 1.2 (0.9-1.2) 12/22/16 09:45 APTT 31.6 Seconds (25.6-37.1) 12/22/16 09:45 - Constitutional Appears: No Acute Distress - ENT Exam ENT Exam: Mucous Membranes Moist - Respiratory Exam Respiratory Exam: Clear to Ausculation Bilateral, NORMAL BREATHING PATTERN - Cardiovascular Exam Cardiovascular Exam: REGULAR RHYTHM, +S1, +S2 - GI/Abdominal Exam GI & Abdominal Exam: Soft, Normal Bowel Sounds. absent: Distended, Firm, Guarding, Tenderness - Extremities Exam Extremities Exam: Normal Inspection. absent: Calf Tenderness, Pedal Edema - Neurological Exam Neurological Exam: Alert, Awake, Oriented x3 - Skin Skin Exam: Dry, Intact, Normal Color Assessment and Plan (1) Chest pain Assessment & Plan: resolved f/u Myocardial perfusion scan results f/u Dr. Kaplan recommendations Cardiology on board Status: Acute (2) HTN (hypertension) Assessment & Plan: controlled c/w home meds, but consider dose adjustment due to SBP close to low normal levels Status: Chronic (3) Diabetes mellitus type 2 in nonobese Assessment & Plan: c/w current management c/w accucheck Status: Chronic <Grayson Madrigal K - Last Filed: 01/02/17 17:17> Objective - Vital Signs/Intake and Output Vital Signs (last 24 hours): Temp Pulse Resp BP Pulse Ox 98 F 63 18 115/66 97 12/26/16 13:00 12/26/16 13:00 12/26/16 13:00 12/26/16 13:00 12/26/16 13:00 - Labs Labs: 12/25/16 05:30 12/25/16 05:30 PT 12.5 Seconds (9.8-13.1) 12/22/16 09:45 INR 1.2 (0.9-1.2) 12/22/16 09:45 APTT 31.6 Seconds (25.6-37.1) 12/22/16 09:45 Assessment and Plan - Assessment and Plan (Free Text) Assessment: Patient was personally seen and examined by me in rounds with residents. Available labs and diagnostic data reviewed. Case, Patient's condition and management plan Discussed with residents in rounds. Agree with resident's progress note. Plan: As ordered.
[2016-12-26 12:36] VITALS: BP 115/66; PULSE 63; TEMP 98
--- NOTE | 2016-12-26 19:52 | CARD ---
APPROVED REPORT Protocol: LEXISCAN Test Type: Stress Nuclear Medical History: Reflux, HTN, Cholesterol, Dementia, Carotid Endarterectomy, Diabetes, Appendectomy Target HR: 144 bpm Resting ECG: normal Resting Heart Rate: 70 bpm Resting Blood Pressure: 105/62mmHg submaximum (85%): 122 bpm TEST SUMMARY PREINJECTPRE-[id number]/79.0. [id number]/79.0. INJECTIONNS FLUSH00:[id number]/80.0. INJECTIONNUC MED00:[id number]/80.0. [id number]/85.0. PROCEDURE Pharmacologic stress testing was performed using 0.4mg per 5ml of regadenoson given intravenously over 7-10 seconds. Reversal agent aminophyline 100 mg, given intravenously for Headache. POST EXERCISE Reason for Termination: completed the test Target HR: No Max HR: 90 bpm 63% of Maximum Predicted HR: 144 bpm Exercise duration: 01:00 min:sec, 0 Stage Exercise capacity: 1.0METs Max Blood Pressure: 182/79mmHg Blood Pressure response to exercise: pharmacological Heart Rate response to exercise: pharmacological Chest Pain: No, none Angina index: 0 Arrhythmia: No, none ST Change: No, none Deviation: 0 mm Clinical Indications Under Appropriate Use Criteria chest pain Stress EKG Interpretation Normal pharmacological portion of the stress. EXAM: Myocardial Perfusion REST/STRESS Image QualityGood Imaging Protocol The imaging protocol used to acquire images was Rest Tc-99m/stress Tc-99m 1 day Rest Spect myocardial perfusion imaging was performed in supine position 80 minutes following the injection of 10 mCi of Tc-99 Myoview. Time of rest injection: 8:32 Time of rest imagin:50 At peak stress, the patient was injected intravenously with 30mCi of Tc-99 tetrofosmin after an infusion time of minutes and seconds. Time of stress injection: 12:43 Time of stress imagin:50 Gated Stress Spect was performed 67 minutes after intravenous Tc-99 Myoview injection. The images were gated to evaluate regional wall motion and calculate ventricular ejection fraction. NUCLEAR IMAGE INTERPRETATION The rest and stress images show normal perfusion, normal contraction and thickening. LV Perfusion The perfusion of the left ventricle was normal on the standard three tomographic and bullseye plot images. Wall Motion normal LVEF of 78% CONCLUSION 1. The patient is a 76 year old female who was referred for a pharmacological stress test due to chest pain. She also has a history of hypertension, hyperlipidemia, diabetes mellitus and she had a carotid endarterectomy. Her medicines include carvedilol, lovenox, losartan and omega 3. The resting EKG showed normal sinus rhythm. The patient was hooked up to a continuous alarm security or surveillance monitor and lexiscan at a dose of 0.4 mg/5ml was injected intravenously. The patient tolerated the lexiscan injection well without any chest pain or significant EKG changes. The vital signs were stable and there weren't any side effects from the lexiscan. The nuclear scans showed normal perfusion ot the left ventricle. The LVEF on the gated study was 78%. 2. Impression: Negative pharmacological stress test for ischemia. LVEF of 78%. Recommendation medical treatment This study was reviewed with Dr. Kaplan
== END 2016-12-26 13:34 | disposition home or self-care (01) | DRG 313 ==
LOC: H.ER 09:02 → OBSVTOIN 12:49 → H.ERHOLD 12:49 → H.TEL 14:50
PROVIDERS: ADMIT Internal Medicine; ATTEND Internal Medicine
DX: R07.89 Other chest pain (principal); F03.90 Unspecified dementia, unspecified severity, without behavioral disturbance, psychotic disturbance, mood disturbance, and anxiety; E11.9 Type 2 diabetes mellitus without complications; I10 Essential (primary) hypertension; E78.00 Pure hypercholesterolemia, unspecified; E78.5 Hyperlipidemia, unspecified; K21.9 Gastro-esophageal reflux disease without esophagitis; Z90.49 Acquired absence of other specified parts of digestive tract; K29.70 Gastritis, unspecified, without bleeding; R07.81 Pleurodynia; R06.02 Shortness of breath; R05 Cough

== ENCOUNTER 2017-12-20 10:15 | Day surgery (SDC) | payer OTHER ==
[2017-12-20] MEDS ORDERED: Lactated Ringer's 500 ML IV ONE (10:34)
[2017-12-20 10:47] VITALS: TEMP 97
[2017-12-20] MEDS ORDERED: Propofol 10 mg/ml Inj (20 ML) ONE (11:49)
[2017-12-20 12:35] VITALS: BP 120/52; PULSE 68; RESP 16; O2SAT 99
== END 2017-12-20 13:05 | disposition home or self-care (01) ==
LOC: H.ENDO 10:15
PROVIDERS: ATTEND Internal Medicine Gastroenterology
DX: K63.5 Polyp of colon (principal); R19.4 Change in bowel habit
CPT/HCPCS: 45380; 88305; J2001; J2704; J7120